=== PATIENT | female | born 1935 | race Caucasian/White ===

== ENCOUNTER 2020-02-18 05:08 | Day surgery (SDC) | payer OTHER ==
[2019-12-18 15:27] VITALS: BMI 31.6
[2020-02-18 11:34] VITALS: TEMP 97.3
[2020-02-18 11:41] VITALS: PULSE 60
[2020-02-18 12:14] VITALS: BP 146/70
--- NOTE | 2020-02-20 09:38 | PATH ---
Surgical Pathology Report Patient Name: GIOVANNI LARA [facility]. Rec. #: [id number] /Age/Gender: 1935 (Age: 84) / F Account: [id number] Location: [facility]-ENDOSCOPY Taken: 02/18/2020 Received: 02/18/2020 Reported: 02/20/2020 Physicians: Lopez Noel D.O. Specimen(s) Received A: RIGHT COLON B: TRANSVERSE COLON C: LEFT COLON D: SIGMOID E: RECTUM Clinical History Diarrhea Postoperative diagnosis: Diarrhea, hemorrhoids Final Diagnosis A. RIGHT COLON, BIOPSY: COLONIC MUCOSA WITH NO SIGNIFICANT PATHOLOGIC CHANGE. SEE COMMENT. B. TRANSVERSE COLON, BIOPSY: COLONIC MUCOSA WITH NO SIGNIFICANT PATHOLOGIC CHANGE. SEE COMMENT. C. LEFT COLON, BIOPSY: COLONIC MUCOSA WITH NO SIGNIFICANT PATHOLOGIC CHANGE. SEE COMMENT. D. SIGMOID COLON, BIOPSY: COLONIC MUCOSA WITH NO SIGNIFICANT PATHOLOGIC CHANGE. SEE COMMENT. E. RECTUM, BIOPSY: COLONIC MUCOSA WITH REACTIVE LYMPHOID AGGREGATE IN THE LAMINA PROPRIA. SEE COMMENT. Comment: No viral inclusions or parasites seen. No evidence of active colitis or microscopic colitis. Negative for malignancy. Electronically Signed Belem Rene M.D. Gross Description A. Received in formalin, labeled "biopsy right colon" are 3 shrestha, irregular portions of soft tissue ranging from 0.1-0.4 cm. in greatest dimension. The specimens are submitted in toto in one cassette. B. Received in formalin, labeled "biopsy transverse colon" are 3 shrestha, irregular portions of soft tissue ranging from 0.2-0.8 cm. in greatest dimension. The specimens are submitted in toto in one cassette. C. Received in formalin, labeled "biopsy left colon" are 3 shrestha, irregular portions of soft tissue averaging 0.2 cm. in greatest dimension. The specimens are submitted in toto in one cassette. D. Received in formalin, labeled "biopsy sigmoid" are 3 shrestha, irregular portions of soft tissue ranging from 0.1-0.2 cm. in greatest dimension. The specimens are submitted in toto in one cassette. E. Received in formalin, labeled "biopsy rectum" is a shrestha, irregular portion of soft tissue measuring 0.4 cm. in greatest dimension. The specimen is submitted in toto in one cassette. 02/18/2020 saudi/02/18/2020
== END 2020-02-18 12:45 | disposition home or self-care (01) ==
LOC: JASU-ENDO 05:08
PROVIDERS: ATTEND Internal Medicine Gastroenterology
PROC: 0DBE8ZX Excision of Large Intestine, Via Natural or Artificial Opening Endoscopic, Diagnostic (ICD-10-PCS; principal; 2020-02-18 11:00)
DX: R19.7 Diarrhea, unspecified (principal); K64.8 Other hemorrhoids
CPT/HCPCS: 88305-TC

== ENCOUNTER 2020-06-17 19:27 | Inpatient (IN) | payer OTHER ==
[2020-06-17] MEDS ORDERED: ACETAMINOPHEN 500 MG TABLET (FP) PO ONE (20:24)
[2020-06-17] MEDS ORDERED: ACETAMINOPHEN 325 MG TABLET (FP) ONE (21:13)
[2020-06-17 21:32] LABS: BASO % 0.3 % (0-2.0); EOS % 0.2 % (0-4.5); HEMATOCRIT 38.9 % (32.4-45.2); HEMOGLOBIN 13.1 GM/dL (10.7-15.3); LYMPH % 16.5 % (8-40); MCH 29.9 pg (25.7-33.7); MCHC 33.6 g/dl (32.0-36.0); MEAN PLT VOLUME 7.7 fl (7.5-11.1); MONO % 4.5 % (3.8-10.2); NEUT % 78.5 % (42.8-82.8); PLATELET COUNT 196 K/MM3 (134-434); RBC 4.36 M/mm3 (3.60-5.2); RDW 14.4 % (11.6-15.6); WHITE BLOOD COUNT 5.2 K/mm3 (4.0-10.0)
[2020-06-17 21:34] LABS: PH,URINE 5.5 (5.0-8.0); URINE APPEARANCE CLEAR; URINE BILIRUBIN NEGATIVE (NEGATIVE); URINE COLOR YELLOW; URINE GLUCOSE (UA) 3+ (NEGATIVE); URINE KETONE 1+ (NEGATIVE); URINE LEUK ESTERASE NEGATIVE (NEGATIVE); URINE NITRITE NEGATIVE (NEGATIVE); URINE PROTEIN NEGATIVE (NEGATIVE)
[2020-06-17 21:40] LABS: INR 0.97 (0.83-1.09)
[2020-06-17 21:43] LABS: ACTIVATED PTT 31.7 SECONDS (25.2-36.5)
[2020-06-17 21:48] LABS: CHLORIDE 100 mmol/L (98-107); SODIUM 135 mmol/L (136-145)
[2020-06-17 21:51] LABS: ALBUMIN 3.2 g/dl (3.4-5.0); ANION GAP 10 MMOL/L (8-16); CALCIUM 8.2 mg/dL (8.5-10.1); CO2 26 mmol/L (21-32); GLUCOSE,RANDOM 196 mg/dL (74-106); LIPASE 225 U/L (73-393)
[2020-06-17 21:52] LABS: BLOOD UREA NITROGEN 16.5 mg/dL (7-18)
[2020-06-17 21:54] LABS: CREATININE 0.6 mg/dL (0.55-1.3); SGOT/AST 37 U/L (15-37); SGPT/ALT 14 U/L (13-61)
[2020-06-17 21:55] LABS: BILIRUBIN,TOTAL 0.3 mg/dL (0.2-1); TOT PROT 6.5 g/dl (6.4-8.2)
[2020-06-17 21:56] LABS: ALK PHOS 55 U/L (45-117); BILIRUBIN,DIRECT 0.2 mg/dL (0.0-0.2)
[2020-06-18] MEDS ORDERED: SODIUM CHLORIDE 1,000 ML IV SCH (06:30)
[2020-06-18] MEDS: INSULIN SLIDING SCALE (NOVOLOG) 1 VIAL SQ SCH ×4 (07:48→21:43)
[2020-06-18] MEDS ORDERED: ENOXAPARIN NA (PORCINE) 40 MG/0.4 ML DISP.SYRIN SQ ONE (09:38)
[2020-06-18 09:54] LABS: BASO % 0.8 % (0-2.0); EOS % 0.6 % (0-4.5); HEMATOCRIT 37.4 % (32.4-45.2); HEMOGLOBIN 12.3 GM/dL (10.7-15.3); LYMPH % 18.5 % (8-40); MCH 29.4 pg (25.7-33.7); MCHC 32.8 g/dl (32.0-36.0); MEAN CELL VOLUME 89.5 fl (80-96); MEAN PLT VOLUME 7.6 fl (7.5-11.1); MONO % 5.6 % (3.8-10.2); NEUT % 74.5 % (42.8-82.8); PLATELET COUNT 190 K/MM3 (134-434); RBC 4.18 M/mm3 (3.60-5.2); RDW 14.5 % (11.6-15.6); WHITE BLOOD COUNT 4.1 K/mm3 (4.0-10.0)
[2020-06-18] MEDS ORDERED: ENOXAPARIN NA (PORCINE) 40 MG/0.4 ML DISP.SYRIN SQ SCH (10:00)
[2020-06-18] MEDS ORDERED: DOXYCYCLINE INJECTION 100 MG in DEXTROSE 5%-WATER - 100 ML IVPB SCH (10:00)
[2020-06-18] MEDS ORDERED: CEFTRIAXONE 1 GM in DEXTROSE 5%-WATER - 50 ML IVPB SCH (10:00)
[2020-06-18] MEDS ORDERED: ASCORBIC ACID 500 MG TABLET (FP) PO SCH (10:00)
[2020-06-18] MEDS ORDERED: CHOLECALCIFEROL (VIT D3) 1,000 UNIT (25 MCG) TABLET PO SCH (10:00)
[2020-06-18] MEDS ORDERED: ZINC SULFATE 220 MG CAPSULE (FP) PO SCH (10:00)
[2020-06-18] MEDS ORDERED: FAMOTIDINE 20 MG TABLET PO SCH (10:00)
[2020-06-18 10:18] LABS: CHLORIDE 100 mmol/L (98-107)
[2020-06-18 10:21] LABS: CALCIUM 7.8 mg/dL (8.5-10.1)
[2020-06-18] MEDS ORDERED: ASCORBIC ACID 500 MG TABLET (FP) ONE (10:21)
[2020-06-18 10:22] LABS: ALBUMIN 2.8 g/dl (3.4-5.0); BLOOD UREA NITROGEN 12.6 mg/dL (7-18); CO2 28 mmol/L (21-32); GLUCOSE,RANDOM 145 mg/dL (74-106); MAGNESIUM 2.1 mg/dL (1.8-2.4)
[2020-06-18] MEDS ORDERED: CEFTRIAXONE 1 GM/50 ML BAG ONE (10:22)
[2020-06-18] MEDS ORDERED: FAMOTIDINE 20 MG TABLET ONE (10:22)
[2020-06-18] MEDS ORDERED: ZINC SULFATE 220 MG CAPSULE (FP) ONE (10:22)
[2020-06-18] MEDS ORDERED: CHOLECALCIFEROL (VIT D3) 1,000 UNIT (25 MCG) TABLET ONE (10:22)
[2020-06-18 10:25] LABS: CREATININE 0.5 mg/dL (0.55-1.3); PHOSPHOROUS 4.3 mg/dL (2.5-4.9); SGOT/AST 31 U/L (15-37)
[2020-06-18 10:26] LABS: BILIRUBIN,TOTAL 0.8 mg/dL (0.2-1); TOT PROT 6.2 g/dl (6.4-8.2)
[2020-06-18 10:28] LABS: ALK PHOS 42 U/L (45-117)
[2020-06-18 10:38] LABS: ANION GAP 8 MMOL/L (8-16); CHOLESTEROL 149 mg/dL (50-200); HDL CHOLESTEROL 32 mg/dL (40-60); LDL CHOLESTEROL (ONLY SJRH) 95 mg/dL (5-100); SGPT/ALT 12 U/L (13-61); SODIUM 136 mmol/L (136-145); TRIGLYCERIDES 168 mg/dL (0-150)
[2020-06-18 16:39] VITALS: BMI 26.6
[2020-06-18] MEDS: SODIUM CHLORIDE 1,000 ML IV SCH (16:42)
[2020-06-18] MEDS: ASCORBIC ACID 500 MG TABLET (FP) PO SCH (21:42)
[2020-06-18] MEDS: FAMOTIDINE 20 MG TABLET PO SCH (21:42)
[2020-06-18] MEDS ORDERED: DOXYCYCLINE INJECTION 100 MG in DEXTROSE 5%-WATER 100 ML IVPB SCH (22:00)
[2020-06-18] MEDS: ACETAMINOPHEN 325 MG TABLET (FP) PO PRN (23:04)
[2020-06-19] MEDS: INSULIN SLIDING SCALE (NOVOLOG) 1 VIAL SQ SCH ×4 (06:19→21:49)
[2020-06-19 07:38] LABS: ALBUMIN 2.9 g/dl (3.4-5.0); BLOOD UREA NITROGEN 7.8 mg/dL (7-18); CALCIUM 7.8 mg/dL (8.5-10.1); MAGNESIUM 2.1 mg/dL (1.8-2.4)
[2020-06-19 07:41] LABS: BILIRUBIN,TOTAL 0.7 mg/dL (0.2-1)
[2020-06-19 07:42] LABS: CREATININE 0.5 mg/dL (0.55-1.3); TOT PROT 6.4 g/dl (6.4-8.2)
[2020-06-19 08:04] LABS: BASO % 1.5 % (0-2.0); EOS % 2.7 % (0-4.5); HEMATOCRIT 39.4 % (32.4-45.2); LYMPH % 29.4 % (8-40); MCH 29.6 pg (25.7-33.7); MCHC 32.9 g/dl (32.0-36.0); MEAN CELL VOLUME 90.1 fl (80-96); MEAN PLT VOLUME 7.9 fl (7.5-11.1); MONO % 7.3 % (3.8-10.2); NEUT % 59.1 % (42.8-82.8); PLATELET COUNT 218 K/MM3 (134-434); RBC 4.37 M/mm3 (3.60-5.2); RDW 14.5 % (11.6-15.6); WHITE BLOOD COUNT 4.2 K/mm3 (4.0-10.0)
[2020-06-19] MEDS: DEXAMETHASONE SOD PHOSPHATE 4 MG/1 ML VIAL IVPUSH SCH ×2 (09:27→09:28)
[2020-06-19] MEDS: ENOXAPARIN NA (PORCINE) 40 MG/0.4 ML DISP.SYRIN SQ SCH (09:28)
[2020-06-19] MEDS: ZINC SULFATE 220 MG CAPSULE (FP) PO SCH (09:28)
[2020-06-19] MEDS: CHOLECALCIFEROL (VIT D3) 1,000 UNIT (25 MCG) TABLET PO SCH (09:28)
[2020-06-19] MEDS: FAMOTIDINE 20 MG TABLET PO SCH ×2 (09:30→21:40)
[2020-06-19] MEDS: ASCORBIC ACID 500 MG TABLET (FP) PO SCH ×2 (09:33→21:40)
[2020-06-19] MEDS ORDERED: CEFTRIAXONE 1 GM in DEXTROSE 5%-WATER - 50 ML IVPB SCH (10:00)
[2020-06-19] MEDS: SODIUM CHLORIDE 1,000 ML IV SCH (15:11)
[2020-06-19] MEDS ORDERED: REMDESIVIR 200 MG in SODIUM CHLORIDE 210 ML IVPB ONE (15:46)
[2020-06-19] MEDS: ACETAMINOPHEN 325 MG TABLET (FP) PO PRN (21:55)
[2020-06-20] MEDS: INSULIN SLIDING SCALE (NOVOLOG) 1 VIAL SQ SCH ×4 (06:42→21:18)
[2020-06-20] MEDS: SODIUM CHLORIDE 1,000 ML IV SCH (06:42)
[2020-06-20 08:00] LABS: HEMOGLOBIN 12.2 GM/dL (10.7-15.3); MEAN CELL VOLUME 88.1 fl (80-96); MEAN PLT VOLUME 7.7 fl (7.5-11.1); PLATELET COUNT 234 K/MM3 (134-434); RBC 4.08 M/mm3 (3.60-5.2); RDW 14.5 % (11.6-15.6)
[2020-06-20 08:17] LABS: ALBUMIN 2.7 g/dl (3.4-5.0); BLOOD UREA NITROGEN 8.2 mg/dL (7-18)
[2020-06-20 08:18] LABS: BILIRUBIN,TOTAL 0.3 mg/dL (0.2-1)
[2020-06-20 08:19] LABS: CALCIUM 7.6 mg/dL (8.5-10.1)
[2020-06-20 08:21] LABS: CREATININE 0.4 mg/dL (0.55-1.3); PHOSPHOROUS 2.8 mg/dL (2.5-4.9)
[2020-06-20] MEDS: ENOXAPARIN NA (PORCINE) 40 MG/0.4 ML DISP.SYRIN SQ SCH (09:17)
[2020-06-20] MEDS: DEXAMETHASONE SOD PHOSPHATE 4 MG/1 ML VIAL IVPUSH SCH (09:17)
[2020-06-20] MEDS: ASCORBIC ACID 500 MG TABLET (FP) PO SCH ×2 (09:18→21:13)
[2020-06-20] MEDS: FAMOTIDINE 20 MG TABLET PO SCH ×2 (09:18→21:13)
[2020-06-20] MEDS: ZINC SULFATE 220 MG CAPSULE (FP) PO SCH (09:18)
[2020-06-20] MEDS: CHOLECALCIFEROL (VIT D3) 1,000 UNIT (25 MCG) TABLET PO SCH (09:18)
[2020-06-20 11:36] LABS: ERYTHROCYTE SEDIMENTATION RATE 42 mm/hr (0-30)
[2020-06-20] MEDS: REMDESIVIR 100 MG in SODIUM CHLORIDE 230 ML IVPB SCH (16:49)
[2020-06-21] MEDS: INSULIN SLIDING SCALE (NOVOLOG) 1 VIAL SQ SCH ×4 (06:29→22:36)
[2020-06-21] MEDS ORDERED: INSULIN SLIDING SCALE (NOVOLOG) 1 VIAL SQ ONE (06:58)
[2020-06-21] MEDS: DEXAMETHASONE SOD PHOSPHATE 4 MG/1 ML VIAL IVPUSH SCH (09:43)
[2020-06-21] MEDS: ENOXAPARIN NA (PORCINE) 40 MG/0.4 ML DISP.SYRIN SQ SCH (09:47)
[2020-06-21] MEDS: ASCORBIC ACID 500 MG TABLET (FP) PO SCH ×2 (09:48→22:36)
[2020-06-21] MEDS: ZINC SULFATE 220 MG CAPSULE (FP) PO SCH (09:48)
[2020-06-21] MEDS: CHOLECALCIFEROL (VIT D3) 1,000 UNIT (25 MCG) TABLET PO SCH (09:48)
[2020-06-21] MEDS: FAMOTIDINE 20 MG TABLET PO SCH ×2 (09:48→22:36)
[2020-06-21] MEDS: REMDESIVIR 100 MG in SODIUM CHLORIDE 230 ML IVPB SCH (17:21)
[2020-06-22] MEDS ORDERED: MELATONIN 5 MG TABLETS PO ONE (02:11)
[2020-06-22] MEDS: INSULIN SLIDING SCALE (NOVOLOG) 1 VIAL SQ SCH ×4 (07:12→21:08)
[2020-06-22] MEDS: DEXAMETHASONE SOD PHOSPHATE 4 MG/1 ML VIAL IVPUSH SCH (09:22)
[2020-06-22] MEDS: ENOXAPARIN NA (PORCINE) 40 MG/0.4 ML DISP.SYRIN SQ SCH (10:02)
[2020-06-22] MEDS: ZINC SULFATE 220 MG CAPSULE (FP) PO SCH (10:02)
[2020-06-22] MEDS: CHOLECALCIFEROL (VIT D3) 1,000 UNIT (25 MCG) TABLET PO SCH (10:02)
[2020-06-22] MEDS: ASCORBIC ACID 500 MG TABLET (FP) PO SCH ×2 (10:03→21:05)
[2020-06-22] MEDS: FAMOTIDINE 20 MG TABLET PO SCH ×2 (10:03→21:06)
[2020-06-22] MEDS: REMDESIVIR 100 MG in SODIUM CHLORIDE 230 ML IVPB SCH (17:44)
[2020-06-23] MEDS: ACETAMINOPHEN 325 MG TABLET (FP) PO PRN ×2 (05:40→22:37)
[2020-06-23] MEDS: INSULIN SLIDING SCALE (NOVOLOG) 1 VIAL SQ SCH ×4 (06:00→22:36)
[2020-06-23] MEDS: CHOLECALCIFEROL (VIT D3) 1,000 UNIT (25 MCG) TABLET PO SCH (09:35)
[2020-06-23] MEDS: FAMOTIDINE 20 MG TABLET PO SCH ×2 (09:35→22:29)
[2020-06-23] MEDS: ZINC SULFATE 220 MG CAPSULE (FP) PO SCH (09:35)
[2020-06-23] MEDS: ENOXAPARIN NA (PORCINE) 40 MG/0.4 ML DISP.SYRIN SQ SCH (09:35)
[2020-06-23] MEDS: DEXAMETHASONE SOD PHOSPHATE 4 MG/1 ML VIAL IVPUSH SCH (09:35)
[2020-06-23] MEDS: ASCORBIC ACID 500 MG TABLET (FP) PO SCH ×2 (09:35→22:29)
[2020-06-23] MEDS: REMDESIVIR 100 MG in SODIUM CHLORIDE 230 ML IVPB SCH (16:03)
[2020-06-23] MEDS ORDERED: POLYETHYLENE GLYCOL 3350 119 GM BTL PO ONE (19:44)
[2020-06-23] MEDS ORDERED: INSULIN (NOVOLOG) ASPART 100 UNITS/ML 10ML VIAL SQ ONE (19:59)
[2020-06-23] MEDS ORDERED: INSULIN (LEVEMIR) 100 UNITS/ML UNITS SQ SCH (22:00)
[2020-06-24] MEDS: INSULIN SLIDING SCALE (NOVOLOG) 1 VIAL SQ SCH ×3 (06:26→17:21)
[2020-06-24 10:53] VITALS: BP 131/59; PULSE 68; TEMP 98.1
[2020-06-24] MEDS: CHOLECALCIFEROL (VIT D3) 1,000 UNIT (25 MCG) TABLET PO SCH (10:53)
[2020-06-24] MEDS: ZINC SULFATE 220 MG CAPSULE (FP) PO SCH (10:53)
[2020-06-24] MEDS: FAMOTIDINE 20 MG TABLET PO SCH (10:53)
[2020-06-24] MEDS: ASCORBIC ACID 500 MG TABLET (FP) PO SCH (10:53)
[2020-06-24] MEDS: ENOXAPARIN NA (PORCINE) 40 MG/0.4 ML DISP.SYRIN SQ SCH (10:53)
[2020-06-24] MEDS ORDERED: INSULIN SLIDING SCALE (NOVOLOG) 1 VIAL SQ ONE (11:48)
[2020-06-24] MEDS ORDERED: Insulin (LOG) Aspart 100 UNITS/ML VIAL SQ ONE (18:50)
== END 2020-06-24 19:35 | disposition home or self-care (01) | DRG 177 ==
LOC: JER 19:27 → JERBED 20:28 → J6WEST-2 06-18 15:26
PROVIDERS: ADMIT Internal Medicine; ATTEND Internal Medicine
PROC: 8E0ZXY6 Isolation (ICD-10-PCS; 2020-06-17)
PROC: XW033E5 Introduction of Remdesivir Anti-infective into Peripheral Vein, Percutaneous Approach, New Technology Group 5 (ICD-10-PCS; 2020-06-19)
PROC: XW13325 Transfusion of Convalescent Plasma (Nonautologous) into Peripheral Vein, Percutaneous Approach, New Technology Group 5 (ICD-10-PCS; principal; 2020-06-20)
DX: U07.1 COVID-19 (principal); J96.01 Acute respiratory failure with hypoxia; J12.89 Other viral pneumonia; F31.89 Other bipolar disorder; E87.1 Hypo-osmolality and hyponatremia; I45.10 Unspecified right bundle-branch block; R19.7 Diarrhea, unspecified; J44.9 Chronic obstructive pulmonary disease, unspecified; J45.909 Unspecified asthma, uncomplicated; E78.5 Hyperlipidemia, unspecified; E11.51 Type 2 diabetes mellitus with diabetic peripheral angiopathy without gangrene; K58.8 Other irritable bowel syndrome; E11.65 Type 2 diabetes mellitus with hyperglycemia; I10 Essential (primary) hypertension; R94.31 Abnormal electrocardiogram [ECG] [EKG]; G43.909 Migraine, unspecified, not intractable, without status migrainosus; R10.31 Right lower quadrant pain
CPT/HCPCS: 36415; 36430; 71046-TC-FY; 71275-TC; 74175-TC; 80053; 80061; 81003; 82248; 82550; 82728; 82962; 83036; 83605; 83615; 83690; 83721; 83735; 84100; 84443; 84484; 85025; 85027; 85379; 85610; 85651; 85730; 86140; 86850; 86900; 86901; 87086; 87804; 93005; 93010; 93306-TC; 94761; 99285-25; C9399; C9803; P9017; Q9967; U0003